=== PATIENT | female | born 1975 | race Caucasian/White ===

== ENCOUNTER 2018-08-23 12:15 | Day surgery (SDC) | payer OTHER ==
[~2018-08-23] VITALS: Ht 172.7 cm; Wt 68.8 kg
[2018-08-23 15:09] VITALS: Ht 172.7 cm; Wt 68.8 kg
[2018-08-23] MEDS ORDERED: no home meds (15:23)
[2018-08-23 15:31] VITALS: BP 125/60; PULSE 78; RESP 12
[2018-08-23] MEDS ORDERED: MIDAZOLAM 1 MG/ML 2 ML INJ ONE ×3 (16:11→16:12)
[2018-08-23] MEDS ORDERED: FENTAnyl 50 MCG/ML VIAL ONE (16:12)
[2018-08-23 16:31] VITALS: BP 113/65; PULSE 83; RESP 20
== END 2018-08-23 16:47 | disposition home or self-care (01) ==
LOC: GIL 12:15
PROVIDERS: ATTEND Internal Medicine Gastroenterology
DX: K64.8 Other hemorrhoids (principal); D50.0 Iron deficiency anemia secondary to blood loss (chronic); K29.30 Chronic superficial gastritis without bleeding
CPT/HCPCS: 43239; 45378; 84703; J2250; J3010; 88305; 88312